=== PATIENT | female | born 1985 | race Two or more races ===

== ENCOUNTER 2018-04-24 17:25 | Emergency (ER) | payer BC ==
[~2018-04-24] VITALS: Ht 160 cm; Wt 81.8 kg
[2018-04-24] MEDS: ketorolac tromethamine 15mg/ml inj. IM ONE (20:44)
[2018-04-24] MEDS: diphenhydrAMINE 25mg capsule PO ONE (20:44)
[2018-04-24] MEDS: proCHLORperazine 10 MG/2 ml inj IM ONE (20:44)
[2018-04-24] MEDS ORDERED: IBUP-1985 PO (21:09)
[2018-04-24] MEDS ORDERED: METH500T PO (21:09)
[2018-04-24 21:15] VITALS: BP 117/77
== END 2018-04-24 21:17 | disposition home or self-care (01) ==
LOC: ER 17:26
DX: S06.0X0A Concussion without loss of consciousness, initial encounter (principal); S13.9XXA Sprain of joints and ligaments of unspecified parts of neck, initial encounter; R51 Headache; Z88.8 Allergy status to other drugs, medicaments and biological substances; V49.49XA Driver injured in collision with other motor vehicles in traffic accident, initial encounter; Y93.89 Activity, other specified; Y92.413 State road as the place of occurrence of the external cause; Y99.8 Other external cause status
CPT/HCPCS: 72125; 96372; 99284; J0780; J1885; Q0163

== ENCOUNTER 2021-08-18 16:10 | Emergency (ER) | payer BC, OTHER ==
[~2021-08-18] VITALS: Ht 160 cm; Wt 89.1 kg
[~2021-08-18 16:10] MED LIST: IBUP-1985 PO; METH500T PO
[2021-08-18 19:32] LABS: CLARITY,URINE CLEAR (Clear); COLOR,URINE YELLOW (Yellow); GLUCOSE, URINE NEGATIVE (Neg); KETONES,URINE NEGATIVE (Neg); LEUKOCYTE ESTERASE ,URINE NEGATIVE (Neg); NITRITES, URINE NEGATIVE (Neg); OCCULT BLOOD,URINE MODERATE (Neg); PROTEIN,URINE NEGATIVE (Neg); UROBILINOGEN,URINE 0.2 E.U/dL (0.2-1.0)
[2021-08-18 19:41] LABS: UA COLLECTION TYPE CLN CATCH MIDSTREAM
[2021-08-18 19:42] LABS: BACTERIA,URINE FEW /HPF (Neg); MUCUS STRANDS FEW /LPF (Neg); RBC,URINE 20-50 /HPF (0-2); SQUAMOUS EPITHELIAL CELL,UR FEW /LPF (FEW); WBC,URINE 0-4 /HPF (0-4)
[2021-08-18 20:10] VITALS: BP 133/90
== END 2021-08-18 20:12 | disposition home or self-care (01) ==
LOC: ER 16:13
DX: O03.9 Complete or unspecified spontaneous abortion without complication (principal); Z88.8 Allergy status to other drugs, medicaments and biological substances; Z79.899 Other long term (current) drug therapy; Z3A.01 Less than 8 weeks gestation of pregnancy
CPT/HCPCS: 36415; 76801; 81001; 84702; 99284